=== PATIENT | male | born 1950 | race Caucasian/White ===

== ENCOUNTER 2017-06-14 21:00 | Outpatient (CLI) | payer MEDICARE | END 2017-06-14 21:01 | disposition critical access hospital (66) | LOC: EMS 21:00 | PROVIDERS: ATTEND Surgery | DX: M79.604 Pain in right leg (principal); R11.0 Nausea | CPT/HCPCS: A0425; A0427 ==

== ENCOUNTER 2017-06-14 21:19 | Observation (INO) | payer MEDICAID, MEDICARE ==
[2017-06-14 22:20] LABS: BASOPHILS % (AUTO) 0.2 %; EOSINOPHILS % (AUTO) 0.5 %; HCT - HEMATOCRIT 37.2 % (42.0-52.0); HGB - HEMOGLOBIN 11.9 g/dL (14.0-18.0); LYMPHOCYTES # (AUTO) 0.6 10^3/uL (1.5-3.5); LYMPHOCYTES % (AUTO) 7.2 %; MEAN CORPUSCULAR HEMOGLOBIN 28.2 pg (27.0-31.0); MEAN CORPUSCULAR HGB CONC 31.9 g/dL (32.0-36.0); MEAN CORPUSCULAR VOLUME 88.4 fL (80.0-94.0); MONOCYTES % (AUTO) 11.8 %; NEUTROPHILS # (AUTO) 7.1 10^3/uL (1.5-6.6); NEUTROPHILS % (AUTO) 80.3 %; RED BLOOD COUNT 4.21 10^6/uL (4.70-6.10); RED CELL DISTRIBUTION WIDTH 14.1 % (12.0-15.0); UNCORRECTED WHITE BLOOD COUNT 8.8 x10^3/uL; WHITE BLOOD COUNT 8.8 x10^3/uL (4.8-10.8)
--- NOTE | 2017-06-14 22:21 | Ultrasound Preliminary Report ---
Exam: US Duplex Ext Veins Right IMPRESSION: No evidence for deep venous thrombosis. [facility] SITE ID: [id number]
--- NOTE | 2017-06-14 22:24 | Ultrasound Report ---
EXAM: RIGHT LOWER EXTREMITY VENOUS ULTRASOUND EXAM DATE: 06/14/2017 09:35 PM. CLINICAL HISTORY: Multiple dvt/pe chest pain, leg swelling. COMPARISON: None. TECHNIQUE: Real-time sonographic vascular imaging was performed by the automotive parts person through the lower extremity utilizing both color-flow and Doppler spectral analysis. Multiple commercial representative static gina ges were saved for review. FINDINGS: Common Femoral Vein (CFV): Normal. CFV-GSV Junction: Normal. Profunda Femoral Vein (PFV): Normal. Femoral Vein (FV) Prox: Normal. Femoral Vein (FV) Mid: Normal. Femoral Vein (FV) Dist: Normal. Popliteal Vein: Normal. Posterior Tibial Veins: The visualized segments are patent. Peroneal Veins: The visualized segments are patent. Contralateral Side CFV: Normal. Other: Calf edema. IMPRESSION: No evidence for deep venous thrombosis. [facility] Referring Provider Line: [phone] SITE ID: [id number]
[2017-06-14 22:28] LABS: PT - PROTHROMBIN TIME 112.3 secs (9.9-12.6)
[2017-06-14 22:36] LABS: ALBUMIN/GLOBULIN RATIO 1.4 (1.0-2.2); BILIRUBIN,TOTAL 0.6 mg/dL (0.2-1.0); CALCIUM 8.9 mg/dL (8.5-10.3); MAGNESIUM 1.7 mg/dL (1.7-2.8); POTASSIUM 4.9 mmol/L (3.5-5.0); TOTAL PROTEIN 6.3 g/dL (6.7-8.2)
[2017-06-14 22:38] LABS: INR 9.7 (0.8-1.2)
[2017-06-14 22:41] LABS: PARTIAL THROMBOPLASTIN TIME 51.2 secs (24.9-33.3)
[2017-06-14] MEDS ORDERED: PHYTONADIONE 10 MG/ML AMP PO ONE (23:24)
[2017-06-14] MEDS ORDERED: oxyCODONE 5 MG TABLET PO PRN (23:25)
[2017-06-14] MEDS ORDERED: ONDANSETRON 4 MG/2 ML VIAL IVP PRN (23:25)
[2017-06-14] MEDS ORDERED: ZOLPIDEM 5 MG TABLET PO PRN (23:25)
[2017-06-14] MEDS ORDERED: SODIUM CHLORIDE FLUSH 0.9% 10 ML SYRINGE IVP PRN (23:25)
[2017-06-14] MEDS ORDERED: ONDANSETRON ODT 4 MG TABLET TL PRN (23:25)
--- NOTE | 2017-06-14 23:29 | ED Physician Documentation ---
PD HPI LOWER EXT INJURY - Stated complaint Stated Complaint: SOA/DVT - Chief complaint Chief Complaint: Ext Problem - History obtained from History obtained from: Patient, Family - History of Present Illness PD HPI LOW EXT INJURY LOCATION: Right, Lower leg Where injury occurred: Home Timing - onset: Today Timing - details: Gradual onset, Still present Contributing factors: Anticoagulated Similar symptoms before: Work up / diagnostics, Treatment, Follow up Recently seen: Not recently seen - Additional information Additional information: Patient is a 67 year old male with a history of dvts and PE who is presenting to the emergency department for worsening right sided leg pain. patient states that he came to visit his son for his birthday and had worsening right sided leg pain pain up to his hip. Due to recurrent dvts patient came to the emergency department for evaluation. Review of Systems Constitutional: denies: Fever, Chills Eyes: reports: Other (subconjunctival hemorrhage). denies: Decreased vision, Photophobia Ears: denies: Ear pain, Drainage/discharge Nose: denies: Epistaxis Throat: denies: Dental pain / toothache Cardiac: reports: Pedal edema, Calf pain. denies: Chest pain / pressure, Palpitations Respiratory: denies: Cough, Wheezing GI: denies: Abdominal Pain, Nausea, Vomiting : denies: Dysuria, Hematuria Skin: denies: Rash, Lesions Musculoskeletal: reports: Back pain, Extremity pain Neurologic: denies: Generalized weakness, Focal weakness, Numbness Immunocompromised: reports: Immunocompromised, Transplant PD PAST MEDICAL HISTORY - Past Medical History Past Medical History: Yes Cardiovascular: Congestive heart failure, Hypertension Respiratory: Asthma Endocrine/Autoimmune: Type 2 diabetes Other Past Medical History: DVT - Past Surgical History Past Surgical History: Yes - Present Medications Home Medications: Ambulatory Orders Medication Instructions Recorded Confirmed Albuterol Sulf [Ventolin Hfa 2 puffs IH Q4HR PRN 06/15/17 06/15/17 Inhaler] Aspirin Chewable [[place] 1 tab PO DAILY 06/15/17 06/15/17 Aspirin] Cinacalcet HCl [Sensipar] 1 tab PO DAILY 06/15/17 06/15/17 Folic Acid 1 mg PO DAILY 06/15/17 06/15/17 Furosemide [Lasix] 1 tab PO DAILY 06/15/17 06/15/17 Gabapentin 300 mg PO TID 06/15/17 06/15/17 Glimepiride 2 mg PO BID 06/15/17 06/15/17 Metoprolol Tartrate 25 mg PO BID 06/15/17 06/15/17 Omeprazole 20 mg PO DAILY 06/15/17 06/15/17 Pioglitazone HCl 30 mg PO DAILY 06/15/17 06/15/17 Prednisone 40 mg PO DAILY 06/15/17 06/15/17 Sod Phos Di, [place]/K Phos [place] 6 tab PO BID 06/15/17 06/15/17 [Phospho-Mary 250 Neutral Tab] Tacrolimus 5 mg PO BID 06/15/17 06/15/17 Vol-Care Rx Renal 1 tab PO DAILY 06/15/17 Warfarin Sodium 5 mg PO DAILY 06/15/17 06/15/17 - Allergies Allergies/Adverse Reactions: Allergies Allergy/AdvReac Type Severity Reaction Status Date / Time No Known Drug Allergies Allergy Verified 06/14/17 21:29 - Social History Does the pt smoke?: No Smoking Status: Never smoker Does the pt drink ETOH?: No Does the pt have substance abuse?: No - Immunizations Immunizations are current?: Yes - POLST Patient has POLST: No PD ED PE NORMAL - Vitals Vital signs reviewed: Yes - General General: Alert and oriented X 3 - HEENT HEENT: Atraumatic, PERRL, Moist mucous membranes - Neck Neck: Supple, no meningeal sign - Cardiac Cardiac: RRR, No rub - Respiratory Respiratory: No respiratory distress, Clear bilaterally - Abdomen Abdomen: Soft, Non tender, Non distended - Derm Derm: Normal color - Neuro Neuro: Alert and oriented X 3, No motor deficit, No sensory deficit, Normal speech - Psych Psych: Normal mood, Normal affect PD ED PE EXPANDED - HEENT HEENT: Atraumatic, PERRL, Other (subconjunctival hemorrhage on the right) - Derm Derm: Bruising (multiple ecchymosis), Other - Extremities Extremities: Pedal edema bilateral (bilateral pitting edema, worse on the right) Results - Vitals Vitals: Vital Signs - 24 hr 06/14/17 06/14/17 06/14/17 21:22 21:56 23:01 Temperature 37.5 C Heart Rate 88 83 89 Respiratory 20 16 14 Rate Blood Pressure 168/93 H 155/101 H 169/103 H O2 Saturation 95 96 97 Oxygen O2 Source Room air - EKG (time done) 2220 Rate: Rate (enter#) (81) Rhythm: NSR [place]: Anterior hemiblock Intervals: Prolonged ID Ischemia: Q waves Compare to prior EKG: Old EKG unavailable - Labs Labs: Laboratory Tests 06/14/17 06/14/17 06/14/17 22:11 22:11 22:11 WBC 8.8 RBC 4.21 L Hgb 11.9 L Hct 37.2 L MCV 88.4 MCH 28.2 MCHC 31.9 L RDW 14.1 Plt Count 125 L MPV 9.0 Neut # 7.1 H Lymph # 0.6 L [place] # 1.0 Eos # 0.0 Baso # 0.0 Absolute Nucleated RBC 0.00 Nucleated RBCs 0.0 PT 112.3 H INR 9.7 H* APTT 51.2 H Sodium 140 Potassium 4.9 Chloride 106 Carbon Dioxide 24 Anion Gap 10.0 BUN 36 H Creatinine 2.0 H Estimated GFR (MDRD) 33 L Glucose 213 H Calcium 8.9 Phosphorus 3.0 Magnesium 1.7 Total Bilirubin 0.6 AST 23 ALT 19 Alkaline Phosphatase 74 Troponin I B-Natriuretic Peptide Total Protein 6.3 L Albumin 3.7 Globulin 2.6 Albumin/Globulin Ratio 1.4 Lipase 38 06/14/17 06/14/17 22:11 22:11 WBC RBC Hgb Hct MCV MCH MCHC RDW Plt Count MPV Neut # Lymph # [place] # Eos # Baso # Absolute Nucleated RBC Nucleated RBCs PT INR APTT Sodium Potassium Chloride Carbon Dioxide Anion Gap BUN Creatinine Estimated GFR (MDRD) Glucose Calcium Phosphorus Magnesium Total Bilirubin AST ALT Alkaline Phosphatase Troponin I < 0.04 B-Natriuretic Peptide 202 H Total Protein Albumin Globulin Albumin/Globulin Ratio Lipase - Rads (name of study) dvt study Radiology: Final report received (no dvt) PD MEDICAL DECISION MAKING - ED course Complexity details: reviewed old records, reviewed results, re-evaluated patient , considered differential, d/w patient, d/w application development consultant ED course: Patient was seen and examined at bedside. IV access was gained and labs were drawn. ekg was performed. dvt study was performed and was within normal limits. Patient's labs came back and patient was found to have an INR of 9.7. Patient had no signs of active bleeding and was treated with 5mg PO. hospitalist was contacted and the case was discussed with her. Patient was placed in observation for further evaluation and care. Departure - Departure Disposition: ED Place in Observation Clinical Impression: Supratherapeutic INR Condition: Good
[2017-06-14] MEDS ORDERED: PHYTONADIONE 10 MG/ML AMP ONE (23:38)
[2017-06-14] MEDS ORDERED: SODIUM CHLORIDE 0.9% 1,000 ML IV ONE (23:46)
[2017-06-15 01:07] LABS: PT - PROTHROMBIN TIME 112.3 secs (9.9-12.6)
[2017-06-15 01:17] LABS: INR 9.7 (0.8-1.2)
--- NOTE | 2017-06-15 01:55 | HISTORY & PHYSICAL EXAMINATION ---
DATE OF ADMISSION: 06/14/2017 PRIMARY CARE PROVIDER: John Sorensen MD. ADMITTING PROVIDER: Josey Jeronimo MD. CHIEF COMPLAINT: Leg pain and right flank pain. HISTORY OF PRESENT ILLNESS: The patient is a 67-year-old black male [place] at [facility]. He is here visiting his son who is in [facility] and lives here in [place]. The patient has had a renal transplant in 1998 and is on anticoagulation for a DVT that happened about 45 days ago. He says that his ProTime and INR has been all over the place. Sometimes is a little too high, sometimes a little too low and they had to frequently adjust his Coumadin. He gets his INR checked about 3 times a week. His last INR was done on ( today is Tuesday) and he was 2.9. He takes his medications faithfully. He has not been drinking. He has not changed his medication. He is not taking any antibiotics. While camping today started having a leg pulling sensation. This is in the affected leg where he had the DVT. He then started having some spasming along his flank and the family was concerned that he was having another PE so they called the ambulance and brought to the emergency room. There has been no shortness of breath, no antecedent change in status. No fever, no chills, no cough. In the emergency room, he was evaluated by Dr. Cordero. He was afebrile , hypertensive in the 160s/90s, 95% on room air and 88 heart rate. His INR was found to be 9.7. As such, Dr. Cordero cancelled the CT pulmonary angiogram since he felt it was low probability that this gentleman would have a low PE. Dr. Cordero is now asking me to place the patient in observation for the prolonged INR. The patient states he has no bloody nose. No headache. He does not have any blood in his urine. No rectal bleeding. He did develop a red eye today. Children noted it. No trauma. He has no lightheadedness or dizziness. No abdominal pain. PAST MEDICAL HISTORY: 1. DVT 45 days ago. 2. Type 2 diabetes mellitus since 1998. 3. Hypertension. 4. Renal transplant secondary to hypertensive disease 1998. 5. Chronic depression. ALLERGIES: NO KNOWN DRUG ALLERGIES. MEDICATIONS: He says that his medication list is available by accessing as medical records. He does not remember it off the top of his head. He did not bring his bottles in and nursing in the emergency room did not query any further. SOCIAL HISTORY: He was born in [place]. He was the son of a dad. 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 since 1998 when his left him after he got sick. Never been remarried. Denies recreational substance abuse. Denies smoking and alcohol. FAMILY HISTORY: Dad at 61 of a stroke. Mom at 72 of stroke. Brother is healthy. His 4 children are healthy. REVIEW OF SYSTEMS: He has glaucoma and early cataracts. Denies any other problems with vision, hearing, or swallowing this. PULMONARY: Denies coughing, wheezing, chest congestion, URI. CARDIAC: He is told that he has congestive heart failure, but he does believe it because he does understand it. He has chronic leg edema. No orthopnea. No atrial fibrillation, no valvular heart disease. He swims, does [place] on a regular basis. GASTROINTESTINAL: Denies abdominal pain, change in bowel habits. Appetite is good. No blood in his stool. GENITOURINARY: Occasional nocturia. Slight decreased stream. No hematuria. New flank pain today involving his affected kidney side. EXTREMITIES: Denies any significant arthritis pain, back pain, neck pain. SKIN: No new lesions. He does bleed easily. 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 He was admitted to [facility] with a TIA and he says that workup was negative with regards to echo and carotids and an MRI. PHYSICAL EXAMINATION: VITAL SIGNS: On examination, temperature is 37.5, pulse is 86, blood pressure 178/95, respirations 13 and 99% on room air. GENERAL: He is a short statured, stocky middle aged black male with slight lisping of the tongue with speech. Deeply nasal tone of voice. Male pattern baldness, pupils reactive. HEENT: Bilateral arcus senilis. The right sclerae is almost completely opacified by blood. No hyphema. Tongue is midline. Speech is normal. NECK: Supple. No goiter or JVD. LUNGS: Diminished breath sounds at the bases but essentially clear to auscultation without crackles, rhonchi, or wheezing. No increased respiratory effort while talking to me. Voluminous speaker. CARDIOVASCULAR: PMI normally placed with a regular rate and rhythm. ABDOMEN: Soft, nontender. No organomegaly. EXTREMITIES: Warm. No hair on his legs though skin appears shiny. Minimal, minimal trace edema. Warm. No clubbing or cyanosis. NEUROLOGICAL: He seems a little bit deaf, but otherwise, he is alert and oriented to person, place and time. Follows 2-step commands. No focal deficits. LABORATORIES: BUN 36, creatinine 2. Random glucose 213, troponin less than 0.04. BNP 202. White cell count 8.8, hemoglobin 11.9, hematocrit 37.2. platelets 125. INR is 9.7. Venous duplex of the right lower leg is with patent veins, no DVT. ASSESSMENT/PLAN: 1. Supratherapeutic INR with only evidence of bleeding is scleral bleeding on that right eye. Given vitamin K 5 mg orally in the ER. Place in observation. Monitor for bleeding, and check INR and CBC in the morning. 2. Leg and flank pain that is most likely musculoskeletal. The patient reassured. 3. Hypertension, uncontrolled in a patient who has a renal transplant. Closely followed at [facility]. No change in medication at this time. 4. Chronic kidney disease. Again monitored by specialty services. No change in management at this time. 5. Type 2 DM. Carb controlled diet. Eating/Insulin protocol. 5. FULL CODE STATUS. JOB #: [id number] EXT JOB #:[id number] TOMI
[2017-06-15] MEDS ORDERED: SODIUM CHLORIDE FLUSH 0.9% 10 ML SYRINGE IVP SCH (06:00)
[2017-06-15] MEDS ORDERED: PHYTONADIONE 10 MG/ML AMP PO SCH (07:00)
[2017-06-15] MEDS ORDERED: NEUTRA-PHOS 250 MG TABLET PO SCH (08:00)
[2017-06-15 08:52] LABS: HEMOGLOBIN A1C 0.78 g/dL
[2017-06-15] MEDS ORDERED: GLIMEPIRIDE 2 MG TABLET PO SCH (09:00)
[2017-06-15] MEDS ORDERED: FOLIC ACID 1 MG TABLET PO SCH (09:00)
[2017-06-15] MEDS ORDERED: FUROSEMIDE 20 MG TABLET PO SCH (09:00)
[2017-06-15] MEDS ORDERED: predniSONE 20 MG TABLET PO SCH (09:00)
[2017-06-15] MEDS ORDERED: CINACALCET HCL PO SCH (09:00)
[2017-06-15] MEDS: INSULIN ASPART 300 UNIT/3 ML PEN SUBQ SCH ×2 (09:00→13:14)
[2017-06-15] MEDS ORDERED: METOPROLOL TARTRATE 25 MG TABLET PO SCH (09:00)
[2017-06-15] MEDS ORDERED: ASPIRIN CHEW 81 MG TABLET PO SCH (09:00)
[2017-06-15] MEDS ORDERED: POLYETHYLENE GLYCOL 3350 17 GM PACKET PO SCH (09:00)
[2017-06-15] MEDS ORDERED: TACROLIMUS 5 MG PO SCH (09:00)
[2017-06-15] MEDS ORDERED: CALCIUM CARBONATE CHEW 500 MG TABLET PO PRN (09:26)
[2017-06-15 11:51] VITALS: BP 142/78
[2017-06-15 12:40] LABS: INR 2.5 (0.8-1.2); PT - PROTHROMBIN TIME 27.9 secs (9.9-12.6)
--- NOTE | 2017-06-15 13:32 | Discharge Plan ---
Discharge Plan Disposition: 01 Home, Self Care Condition: Stable Diet: Low Sodium Activity Restrictions: Activity as Tolerated Shower Restrictions: No Weight Bearing: Full Weight Additional Instructions or Follow Up instructions: May see PCP Dr.Toby Sorensen in one week, have blood work with PT/INR in one week. Follow-Up Care: [facility] - Medical, [facility] - Diabetes Ed No Smoking: If you smoke, Please STOP! Call for help.
[2017-06-15] MEDS ORDERED: GABAPENTIN 100 MG CAPSULE PO SCH (14:00)
--- NOTE | 2017-06-15 14:12 | DISCHARGE SUMMARY ---
Discharge Summary Admit Date: 06/14/17 Discharge Date: 06/15/17 Discharging Provider: MCDONALD Primary Care Provider: Dr. John Sorensen Code Status: Attempt Resuscitation Condition at Discharge: Stable Discharge Disposition: 01 Home, Self Care Discharge Facility Name: home - DIAGNOSES Admission Diagnoses: 1, supratherapeutic anticoagulation PT/INR 112.3/9.7 2, right lower extremity pain 3, history of DVT 4, DM2 5, HTN 6, CKD 7, status post of renal transplant Discharge Diagnoses with Status of Each Condition: 1, supratherapeutic anticoagulation PT/INR 112.3/9.7 resolved, now PT/INR 27.9/2.5 2, right lower extremity pain resolved, no DVT from US test 3, history of DVT stable, on coumadin 4, DM2 stable, continue home meds 5, HTN stable, continue home meds 6, CKD stable, follow up pt's compensation administrator for management 7, status post of renal transplant stable, continue home meds - HPI History of Present Illness: please refer from DR. Josey Jeronimo's HPI on 06/15/17 - HOSPITAL COURSE Hospital Course: pt was admitted for chief complaint of right lower extremity pain. There is no swelling, erythema, tenderness. Unremarkable for right lower extremity. lab test reveals pt's PT/INR 112.3/9.7. There is no bleeding, no GI bleeding, no hematuria. after Pt was give twice of vitamin K PO, Pt's PT/INR is down to 27.9/ 2,5. pt denies other complaints. Pt request to be discharged to home. Pt will resume home medication. Pt is advised to follow up his PCP and compensation administrator, and have blood work with PT/INR in one week. - ALLERGIES Allergies/Adverse Reactions: Allergies Allergy/AdvReac Type Severity Reaction Status Date / Time No Known Drug Allergies Allergy Verified 06/14/17 21:29 - MEDICATIONS Home Medications: Ambulatory Orders Medication Instructions Recorded Confirmed Albuterol Sulf [Ventolin Hfa 2 puffs IH Q4HR PRN 06/15/17 06/15/17 Inhaler] Aspirin Chewable [[place] 81 mg PO DAILY 06/15/17 06/15/17 Aspirin] Cinacalcet HCl [Sensipar] 30 mg PO DAILY 06/15/17 06/15/17 Folic Acid 1 mg PO DAILY 06/15/17 06/15/17 Furosemide [Lasix] 20 mg PO DAILY 06/15/17 06/15/17 Gabapentin 300 mg PO TID 06/15/17 06/15/17 Glimepiride 2 mg PO BID 06/15/17 06/15/17 Metoprolol Tartrate 25 mg PO BID 06/15/17 06/15/17 Omeprazole 20 mg PO DAILY 06/15/17 06/15/17 Pioglitazone HCl 30 mg PO DAILY 06/15/17 06/15/17 Prednisone 40 mg PO DAILY 06/15/17 06/15/17 Sod Phos Di, [place]/K Phos [place] 6 tab PO BID 06/15/17 06/15/17 [Phospho-Mary 250 Neutral Tab] Tacrolimus 5 mg PO BID 06/15/17 06/15/17 Warfarin Sodium 5 mg PO DAILY 06/15/17 06/15/17 - PHYSICAL EXAM AT DISCHARGE General Appearance: positive: No acute distress, Alert. negative: Lethargic Eyes Bilateral: positive: Normal inspection, PERRL. negative: No lid inflammation, Conjunctivae nml ENT: positive: ENT inspection nml, Pharynx nml, No signs of dehydration. negative: Purulent nasal drainage, Pharyngeal erythema Neck: positive: Nml inspection, Thyroid nml, Trachea midline. negative: Thyromegaly, Lymphadenopathy (R), Lymphadenopathy (L), Stiff neck, Swelling/ bruising, Tracheal deviation Respiratory: positive: Chest non-tender, No respiratory distress, Breath sounds nml. negative: Wheezes, Rales, Rhonchi Cardiovascular: positive: Regular rate & rhythm, No gallop, Irregularly irregular. negative: Tachycardia, Bradycardia, Systolic murmur, Diastolic murmur Peripheral Pulses: positive: 2+ Abdomen: positive: Non-tender, Nml bowel sounds, No distention. negative: Tenderness, Guarding, Rebound Back: positive: Nml inspection. negative: CVA tenderness (R), CVA tenderness (L ) Skin: positive: Color nml, No rash, Warm, Dry. negative: Cyanosis, Diaphoresis , Skin rash Extremities: positive: Non-tender, Full ROM, Nml appearance. negative: Calf tenderness, Joint swelling, Josué's sign/cords Neurologic/Psychiatric: positive: Oriented x3, Motor nml, Sensation nml, Mood/ affect nml. negative: Weakness, Sensory loss, Facial droop, Slurred/abnml speech, Depressed mood/affect - LABS Result Diagrams: 06/14/17 22:11 06/14/17 22:11 - FOLLOW UP Follow Up: Pt is advised to follow up his PCP and compensation administrator, and have blood work with PT /INR in one week.
== END 2017-06-15 14:55 | disposition home or self-care (01) ==
LOC: EDBD → EDSEX → ED 21:19 → OBS 23:25
PROVIDERS: ADMIT Specialist; ATTEND Nurse Practitioner Gerontology
DX: R79.1 Abnormal coagulation profile (principal); H11.31 Conjunctival hemorrhage, right eye; M79.604 Pain in right leg; R10.9 Unspecified abdominal pain; E11.22 Type 2 diabetes mellitus with diabetic chronic kidney disease; I13.0 Hypertensive heart and chronic kidney disease with heart failure and stage 1 through stage 4 chronic kidney disease, or unspecified chronic kidney disease; N18.9 Chronic kidney disease, unspecified; I50.9 Heart failure, unspecified; F32.9 Major depressive disorder, single episode, unspecified; Z79.82 Long term (current) use of aspirin; Z79.01 Long term (current) use of anticoagulants; Z79.84 Long term (current) use of oral hypoglycemic drugs; Z86.718 Personal history of other venous thrombosis and embolism; Z94.0 Kidney transplant status; Z86.73 Personal history of transient ischemic attack (TIA), and cerebral infarction without residual deficits
CPT/HCPCS: 36415; 80053; 80197; 83036; 83690; 83735; 83880; 84100; 84484; 85025; 85610; 85730; 93005; 93971; 96360; 99285; A9270; G0378; J7512